=== PATIENT | female | born 1945 | race Caucasian/White ===

== ENCOUNTER → 2017-09-23 | Outpatient (CLI) | payer OTHER ==
[~2017-09-23] MED LIST: ASPI81TA28 PO; ATOR10TA82 PO; CTP2 PO; DYZ PO; GLCSR5 PO; IRBE1TAB46 PO; LYR50 PO; METFTAB2 PO; METO25TA3 PO; NXM/40 PO
--- NOTE | 2017-09-24 05:25 | PAP/PSG TECHNICIAN REPORT ---
[facility] Balloon Dipper Polysomnogram Report Study name: None Report date: 09/24/2017 Study date: 09/23/2017 Referring Physician: Dr. Pinky Akers M.D. Name: JULI ANAND Interpreting Physician: Anthony Ferguson M.D. Date of : 1945 Balloon Dipper: Kirti Olivo [facility]. Sex: Female Age: 71 StudyType: PSG PAP Weight: 212 lbs Height: 71 years, Height 5' 3" BMI: 37.55 Medications: Aspirin 81 mg, Atorvastatin 40 mg, Zyrtec 10 mg, Cholecaloiferol 1000 units, Aricept 10 mg, Esomeprazole Magnesium 40 mg, Glipizide 10 mg, Ibesrtan 150 mg, Metformin ER 750 mg, Metoprolol Succinate 25 mg, pregabalin 50 mg. Ranitidine 150 mg, Triamterene-hctz 75-50 mg Patient History 71 yr. old female here for a new titration sleep study in room 4. Patient had a HST. ESS 05/10. Parameters Monitored NPSG: E1-M2, E2-M1, Fp1-M2, Fp2-M1, F3-M2, F4-M2, F4-M1, C3-M2, C4-M2, C4-M1, O1-M2, O2-M2, O2-M1, T3-M2, T4-M1, P3-M2, P4-M1, CHIN1, CHIN2, HR, EKG, Legs, PFLOW, SNOR, FLOW, CFLOW, Tidal Volume, THOR, ABDO, SpO2, PLTH, CPRESS, ETCO2 Wave, ETCO2, pH Sleep Architecture Sleep Stages Time at Lights Off 9:39:34 PM STAGES Time (min.) TST (%) Time at Lights On 5:05:04 AM Wake 40.0 -- Total Recording Time (TRT) 445.50 min. N1 16.5 4 Total Sleep Period (TSP) 411.0 min. N2 257.5 64 Total Sleep Time (TST) 405.5min. N3 48.0 12 Awake Time 40.0 min. REM 83.5 21 Wake after Sleep Onset 21.5 min. Sleep Efficiency (SE) 91 % Sleep Onset Latency (RASHID) 18.5 min. Number of Stage 1 Shifts None Awakenings 7 Stage Changes 46 Number of REM periods 7 REM 83.5 21 REM Latency 103.0 min. NREM 322.0 79 Body Position Analysis Supine Right Left Side Prone Vertical Total Sleep Time (min.) 445.5 0.0 0.0 0.00 0.0 0.0 Total Sleep Time (%) 100% 0% 0% 0 0% N/A% Total Sleep Time REM (min.) 83.5 0.0 0.0 None 0.0 0.0 Total Sleep Time NREM (min.) 322.0 0.0 0.0 None 0.0 0.0 Intermittent Wake (min.) 40.0 0.0 0.0 None 0.0 0.0 Total Sleep Period (%) 100% None None None None None Arousals Myoclonus (PLM) * Events Count Index Events Count Index Spontaneous 2 0 Events Awake (PLMW) 13 19.5 Respiratory 4 0.6 Events Asleep w/ Arousal (PLMA) 10 1.5 PLM 10 1 Events Asleep w/o Arousal (PLMS) 294 43.5 Snoring 2 0 Total Asleep 304 45.0 Total 18 3 Total 317 43 Respiratory Analysis * CA OA MA CH H RERA Total Count 0 3 1 0 42 1 46 Index 0.0 0.4 0.1 0 6.2 0 7.0 Mean Duration 0.0 18.3 28.6 0.00 31.7 21.8 30.5 Longest Duration 0.0 26.4 28.6 0.00 28.6 21.8 63.6 Respiratory Event Summary Total Supine ~Supine Right Left Prone REM NREM Apneas Count 4 4 N/A N/A N/A N/A 0 4 Index 0.6 1 N/A N/A N/A N/A 0 1 Hypopneas (4% Desat) Count 42 42 N/A N/A N/A N/A 17 25 Index 6.2 6.2 N/A N/A N/A N/A 12.2 4.7 Apneas & All Hypopneas Count 46 46 N/A N/A N/A N/A 17 29 Index 6.8 7 N/A N/A N/A N/A 12.2 5.4 Respiratory Events (Video News Editor+All Hyp+RERA) Count 46 47 N/A N/A N/A N/A 17 29 Index 7.0 7 N/A N/A N/A N/A 12.9 5.4 Respiratory Related Arousal Count 4 47 N/A N/A N/A N/A 2 2 Index 0.6 1 N/A N/A N/A N/A 1 0 Snoring Analysis Supine Right Left Prone REM NREM Total Snore duration 6.1 min Snores count 322 N/A N/A N/A 77 245 322 Snore mean duration 1.1 Sec Snores index 48 N/A N/A N/A 55.3 45.7 47.6 TST with snoring (%) 1.5% Desaturation Event Summary: Minimum %SpO2 Event Count Mean/Min/Max Duration(sec.) Desaturation Index % Time In Bed > 90 45 33.2 / 11.3 / 60.0 6.8 88.9 86 - 90 7 28.2 / 14.5 / 52.5 9.1 10.3 81 - 85 1 22.8 / 22.8 / 22.8 17.6 0.8 76 - 80 0 N/A 0.0 0.0 71 - 75 0 N/A 0.0 0.0 66 - 70 0 N/A 0.0 0.0 61 - 65 0 N/A 0.0 0.0 56 - 60 0 N/A 0.0 0.0 51 - 55 0 N/A 0.0 0.0 < 50 0 N/A 0.0 0.0 Total REM NREM Awake <50% 0.0 min. 0.0 min. 0.0 min. 0.0 min. 51 - 60% 0.0 min. 0.0 min. 0.0 min. 0.0 min. 61 - 70% 0.0 min. 0.0 min. 0.0 min. 0.0 min. 71 - 80% 0.0 min. 0.0 min. 0.0 min. 0.0 min. 81 - 90% 49.4 min. 12.3 min. 35.9 min. 1.2 min. 91 - 100% 394.9 min. 71.2 min. 286.1 min. 37.5 min. Average 93 93 93 95 Minimum SpO2 82 82 83 82 Desaturation Event Index 6.5 10.1 5.4 7.5 # Desat. Events below 89% 19 5 12 2 Time(%) with Saturation below 89% 2.8 1.4 1.2 0.1 Time(min.) with Saturation below 89% 12.4 6.2 5.5 0.7 Time (mins) REM (mins) NREM (mins) % of TST SpO2 Below 90% 27 8 N19 6.2 SpO2 Below 88% 8 0 0 2 Heart Rate Analysis Min (bpm) Max (bpm) Average (bpm) Awake 36 225 75 NREM 60 88 69 REM 61 84 70 Overall 60 88 69 Supplemental O2 Values Minimum O2 level: None Value Start Time End Time Balloon Dipper Comments Mrs. Anand slept in the supine position. No cardiac arrhythmia. PLMs noted. No bruxism noted. CPAP was initiated at +4 CMH2O room air and up-titrated to a level of + 13 CMH2O no Cflex, which nearly eliminated all respiratory events and snoring. A small [employer] Simplus , was used during titration. Mrs. Anand did not wake to use the restroom during the night. Mrs. Anand stated, "I didn't move all night". The final report will be interpreted and signed by a sleep physician. The completed physician report will then be placed in the patient medical record. Therapy Event: Therapy (cm H20) 4 6 7 8 9 10 11 12 13 Total Time at Pressure (min.) 27.9 30.4 89.5 61.4 18.8 56.6 96.6 37.0 27.3 TST at Pressure (min.) 9.4 29.9 86.5 60.9 18.8 56.1 95.6 37.0 11.3 # Periods 1 1 1 1 1 1 1 1 1 Sleep Onset (min.) 18.5 0.0 0.0 0.0 0.0 0.0 0.0 0.0 0.0 REM Onset (min.) N/A N/A 63.2 58.6 0.0 0.0 56.3 N/A 8.3 Sleep Efficiency % 33 98 96 99 100 99 99 100 41 Wakefulness (%) 66.3 1.6 3.4 0.8 0.0 0.9 1.0 0.0 58.7 Wakefulness (min.) 18.5 0.5 3.0 0.5 0.0 0.5 1.0 0.0 16.0 NREM 1 (%) 9.0 14.8 1.7 0.0 5.3 6.2 3.1 1.4 0.0 NREM 1 (min.) 2.5 4.5 1.5 0.0 1.0 3.5 3.0 0.5 0.0 NREM 2 (%) 24.8 65.5 62.0 53.2 0.0 41.0 77.2 98.6 30.3 NREM 2 (min.) 6.9 19.9 55.5 32.6 0.0 23.2 74.6 36.5 8.3 NREM 3 (%) 0.0 18.1 19.0 41.6 0.0 0.0 0.0 0.0 0.0 NREM 3 (min.) 0.0 5.5 17.0 25.5 0.0 0.0 0.0 0.0 0.0 REM (%) 0.0 0.0 14.0 4.5 94.7 52.0 18.6 0.0 11.0 REM (min.) 0.0 0.0 12.5 2.7 17.8 29.4 18.0 0.0 3.0 # Arousals 0 1 1 1 2 4 5 3 1 Arousal Index 0.0 2.0 0.7 1.0 6.4 4.3 3.1 4.9 5.3 # Snore 14 9 11 99 29 38 76 19 27 Snore Index 89.3 18.0 7.6 97.6 92.4 40.6 47.7 30.8 143.9 AHI 63.8 8.0 2.8 3.9 12.7 6.4 5.7 6.5 5.3 AHI Supine 63.8 8.0 2.8 3.9 12.7 6.4 5.7 6.5 5.3 AHI Non-Supine N/A N/A N/A N/A N/A N/A N/A N/A N/A NREM AHI 63.8 8.0 0.8 2.1 0.0 2.2 5.4 6.5 0.0 REM AHI N/A N/A 14.4 43.7 13.5 10.2 6.7 N/A 20.0 RDI 63.8 8.0 2.8 3.9 12.7 6.4 6.3 6.5 5.3 # Obstructive 0 0 0 2 0 0 0 1 0 # Central Ap 0 0 0 0 0 0 0 0 0 # Mixed 0 0 0 0 0 0 1 0 0 # Hypopneas 10 4 4 2 4 6 8 3 1 RERAS 0 0 0 0 0 0 1 0 0 Total Respiratory Events 10 4 4 4 4 6 10 4 1 Time Below SpO2 89.00% (min.) 1.4 3.7 3.1 2.3 1.2 0.0 0.1 0.0 0.0 Mean NREM SpO2 (%) 90 90 92 92 95 95 94 93 95 Mean REM SpO2 (%) N/A N/A 90 87 94 95 93 N/A 94 Mean Sleep SpO2 (%) 90 90 92 92 94 95 94 93 94 Min NREM SpO2 (%) 85 85 89 83 94 91 88 90 93 Min REM SpO2 (%) N/A N/A 82 84 82 89 90 N/A 93 Position Supine (min.) 9.4 29.9 86.5 60.9 18.8 56.1 95.6 37.0 11.3 Position Non-supine (min.) 0.0 0.0 0.0 0.0 0.0 0.0 0.0 0.0 0.0 LM Index Sleep 0.0 8.0 6.2 27.6 19.1 81.2 96.1 40.6 16.0 LM Index NREM 0.0 8.0 0.0 25.8 0.0 141.5 108.3 40.6 7.3 LM Index REM N/A N/A 43.2 65.6 20.2 26.5 43.3 N/A 40.0 Mean Heart Rate (bpm) 72 73 71 67 68 68 68 69 68 Min Heart Rate (bpm) 67 67 65 62 62 60 63 63 65
--- NOTE | 2017-09-25 16:36 | POLYSOMNOGRAPH REPORT ---
CLINICAL DATA: A 71-year-old female with BMI of 37.[address] Akers and Dr. Rosas for CPAP study. She had a home sleep apnea test which showed sleep apnea. SLEEP ARCHITECTURE: Total recording time was 445.5 minutes. Total sleep period was 411 minutes. Total sleep time was 405.5 minutes divided between 322 minutes of non-REM sleep and 83.5 minutes of REM sleep. Sleep latency was 18.5 minutes. REM latency was 103 minutes. Sleep efficiency was 91%. Wake after sleep onset was 21.5 minutes. Sleep consisted of stage N1 4%, stage N2 64%, stage N3 12%, and REM 21%. AROUSAL DATA: Eighteen arousals were recorded for an index of 3 per hour. PLM DATA: Significantly elevated limb movements during sleep were noted. There were 304 limb movements of sleep noted for an index of 45 per hour with arousal index of 1.5 per hour. RESPIRATORY DATA: The AHI was 6.8. The RDI was 7. There were 3 obstructive and 1 mixed apneic episode. The longest duration of apnea was 28.6 seconds. There were 42 hypopneic episodes with the mean duration of 31.7 seconds. There was 1 RERA, 21.8 seconds in duration. OXIMETRY DATA: Transient hypoxemia was seen. Oxygen grace was 82% during REM sleep. Mean saturation was 92%. Time below 88% was 8 minutes. EKG: Heart rates ranged from 60-88 beats per minute. No arrhythmias were noted. EXERCISE PLANNER'S COMMENTS AND TREATMENT SUMMARY: The patient slept supine. She used a small [employer] Simplus mask. She was titrated up to 13 cm of water pressure. At her final pressure setting, she slept for 11 minutes with an AHI of 5. IMPRESSION: Obstructive sleep apnea/hypopnea corrected with CPAP 13 cm water pressure Moses [employer]kel small mask. RECOMMENDATIONS: The patient should be started on the above noted treatment regimen and seen back in followup within 90 days to document efficacy and compliance. DINORAHD
== END | disposition home or self-care (01) ==
LOC: C.NEUR 20:00
PROVIDERS: ATTEND Nurse Practitioner Family
DX: G47.33 Obstructive sleep apnea (adult) (pediatric) (principal)

== ENCOUNTER 2025-06-13 08:30 | Inpatient (IN) ==
--- NOTE | 2025-06-13 08:53 | XRay Report ---
XR chest 1V portable CLINICAL HISTORY: Dyspnea COMPARISON STUDY: 03/30/2024 FINDINGS: Heart size and pulmonary vasculature are normal. No consolidation or pleural effusion. No p neumothorax. IMPRESSION: No acute findings. ACT 112: Negative or not required by law. Electronically signed by: Manjit Delgado M.D. 06/13/2025 8:52 AM
[2025-06-13 09:02] LABS: Hematocrit (blood only) 42.8 % (37.0-47.0); Hemoglobin 14.2 g/dL (12.0-16.0); Immature Granulocytes # (auto) 0.05 K/uL (0.01-0.20); Immature Granulocytes % (auto) 0.5 %; Mean Corpuscular Hemoglobin 28.4 pg (25.0-34.0); Mean Corpuscular Volume 85.6 fL (80.0-100.0); Platelet Count 160 K/uL (130-400); RDW Standard Deviation 46.5 fL (36.4-46.3); Red Blood Count 5.00 M/uL (4.20-5.40); White Blood Count 9.58 K/ul (4.8-10.8)
[2025-06-13 09:21] LABS: Alanine Aminotransferase 15.0 U/L (7-52); Albumin Globulin Ratio 1.3 (0.9-2); Albumin Level 4.0 gm/dl (3.4-5.0); Alkaline Phosphatase 36.0 U/L (34-104); Anion Gap 9.0 (3-11); Bilirubin,Total 0.5 mg/dl (0.2-1.0); Blood Urea Nitrogen 23.0 mg/dl (6-23); Calcium 8.9 mg/dl (8.6-10.3); Carbon Dioxide 27.0 mmol/L (21-32); Chloride 99.0 mmol/L (98-107); Creatinine Clr Calc Pharmacy 39.3 ml/min; Globulin 3.2 gm/dl (2.5-4.0); Glucose 196.0 mg/dl (70-99(Fasting)); Potassium 4.1 mmol/L (3.5-5.1); Sodium 135.0 mmol/L (136-145); Total Protein 7.2 gm/dl (6.0-8.3)
[2025-06-13 10:22] LABS: Chlamydia pneumoniae PCR Not Detected (NotDetected); Coronavirus 229E PCR Not Detected (NotDetected); Coronavirus CoV-2 (COVID19)PCR DETECTED (NotDetected); Coronavirus HKU1 PCR Not Detected (NotDetected); Coronavirus NL63 PCR Not Detected (NotDetected); Coronavirus OC43PCR Not Detected (NotDetected); Human Metapneumovirus PCR Not Detected (NotDetected); Parainfluenza Virus 1 PCR Not Detected (NotDetected); Parainfluenza Virus 2 PCR Not Detected (NotDetected); Parainfluenza Virus 3 PCR Not Detected (NotDetected); Parainfluenza Virus 4 PCR Not Detected (NotDetected); Respiratory Syncytial VirusPCR Not Detected (NotDetected); Rhinovirus/Enterovirus PCR Not Detected (NotDetected)
[2025-06-13 10:25] LABS: Appearance Urine Clear (Clear); Glucose Urine UA Negative (Negative)
--- NOTE | 2025-06-13 10:32 | Emergency Department Note ---
Impression & Plan COVID, Acute hypoxic respiratory failure ED Provider Note NAME: JULI ANAND AGE: 79 SEX: F : 1945 ARRIVES VIA: Ambulance INFORMANT: Patient, ED PROVIDER(S): Chris Pruett MD CHIEF COMPLAINT: Weakness, confusion HPI: This is a 79-year-old female seen for weakness and confusion. Patient notes that she saw unwell for a few days. She is a fairly limited historian. She does fall asleep states she has no current pain. She has feels tired. She does not feel short of breath. She is found to be in 85% on arrival, on room air. No sick contacts. ROS: Unable to obtain PHYSICAL EXAMINATION: General: resting comfortably in no acute distress Head: Normocephalic and atraumatic Eyes: Normal inspection, extraocular muscles intact Ear, nose, throat: Normal external exam Neck: Normal range of motion Respiratory: lungs clear to auscultation bilaterally Cardiovascular: Regular rate/rhythm, no murmur GI: soft, nontender, no guarding or rebound Extremities: nontender, moves all extremities Neuro: The patient awake and alert, appropriately conversive, no focal deficits, symmetric faces Skin: Warm, dry, and intact MEDICAL DECISION MAKING: This is a 79-year-old female presenting for weakness/confusion. Patient is a limited historian but she is currently hypoxic. She has clear lung sounds overall. Consider viral URI. Low concern for PE as she is not tachycardic or having chest pain. W - Chest Xray independently interpreted by me showing no pneumothorax, focal opacity, or pleural effusions. -Bloodwork is reviewed showing no significant leukocytosis, anemia, electrolyte or creatinine abnormality -Patient is currently COVID-19 positive -As the patient currently requires oxygen to maintain saturations above 90%, will admit to the hospital service Differential diagnosis: Pneumonia, URI, PE Independent History obtained from: EMS Diagnostics interpreted by me: ECG: N ECG independently interpreted by me with normal sinus rhythm, rate of 91, first-degree AV block, normal QRS, normal QTc, no ST segment elevations consistent with STEMI criteria Cardiac Monitoring: An order was placed for continuous cardiac monitoring. The monitor shows a rate of 78 with sinus rhythm. Past Med/Surg History Problem List (Updated 06/13/25 @ 13:32 by Crhis Pruett MD) Acute hypoxic respiratory failure (Acute) COVID (Acute) Venous stasis Loss of protective sensation of skin of foot Diabetic peripheral neuropathy associated with type 2 diabetes mellitus (Chronic) Foot deformity (Chronic) Tinea pedis (Chronic) Medical History (Updated 06/13/25 @ 13:32 by Chris Pruett MD) Diabetes mellitus with diabetic polyneuropathy Social History Smoking Status: Never smoker Preferred Language: Occitan Feels Safe at Home: Yes Allergies Allergies Allergy/AdvReac Type Severity Reaction Status Date / Time oxycodone Allergy Unknown CONFUSION Verified 06/06/16 06:25 AND ANXIETY, "JITTERY" Home Meds Home Medications Medication Instructions Recorded Confirmed atorvastatin 40 mg tablet 10 mg PO UD ##0 12/20/06 06/13/25 esomeprazole magnesium 20 mg 20 mg PO UD ##0 12/20/06 06/13/25 capsule,delayed release aspirin 81 mg tablet,delayed 81 mg PO QAM ##0 05/30/16 06/13/25 release allopurinol 100 mg tablet 100 mg PO QAM 03/30/24 06/13/25 (Zyloprim) donepezil 10 mg tablet 10 mg PO DAILY 03/30/24 06/13/25 escitalopram oxalate 5 mg tablet 5 mg PO QAM 03/30/24 06/13/25 glipizide 10 mg tablet 20 mg PO QAM 03/30/24 06/13/25 memantine 5 mg tablet 5 mg PO BID 03/30/24 06/13/25 pregabalin 25 mg capsule 25 mg PO TID 03/30/24 06/13/25 semaglutide 2 mg/dose (8 mg/3 mL) 8 mg subcut WK 06/13/25 06/13/25 subcutaneous pen injector (Ozempic) Results & Data (ED) Vital Signs Vital Signs - 24 hr 06/13/25 08:43 06/13/25 08:49 06/13/25 09:04 Temperature 37.2 C Temperature Source Axillary Pulse Rate 88 92 H Pulse Rate [Left Finger] Respiratory Rate 22 Respiratory Effort / Characteristics Non-Labored Respiratory Depth Normal Respiratory Pattern Regular Blood Pressure 162/90 H Blood Pressure [Right Arm] Blood Pressure Mean 114 Blood Pressure Mean [Right Arm] Pulse Oximetry 85 L Oxygen Delivery Method Nasal Cannula Room Air Oxygen Flow Rate 2 Sepsis Recent Fever Within 48 Hours No Sepsis New/Unexplained Change in Mental Status No Sepsis Action Taken by Nursing No Action Required 06/13/25 09:08 06/13/25 11:00 06/13/25 12:31 Temperature Temperature Source Pulse Rate 95 H 80 Pulse Rate [Left Finger] 81 Respiratory Rate 22 22 Respiratory Effort / Characteristics Non-Labored Respiratory Depth Normal Respiratory Pattern Blood Pressure Blood Pressure [Right Arm] 145/81 H Blood Pressure Mean Blood Pressure Mean [Right Arm] 102 Pulse Oximetry 95 97 Oxygen Delivery Method Nasal Cannula Room Air Oxygen Flow Rate 2 Sepsis Recent Fever Within 48 Hours Sepsis New/Unexplained Change in Mental Status Sepsis Action Taken by Nursing 06/13/25 13:00 Temperature Temperature Source Pulse Rate Pulse Rate [Left Finger] 78 Respiratory Rate 17 Respiratory Effort / Characteristics Non-Labored Respiratory Depth Normal Respiratory Pattern Blood Pressure Blood Pressure [Right Arm] 137/88 Blood Pressure Mean Blood Pressure Mean [Right Arm] 104 Pulse Oximetry 98 Oxygen Delivery Method Nasal Cannula Oxygen Flow Rate 2 Sepsis Recent Fever Within 48 Hours Sepsis New/Unexplained Change in Mental Status Sepsis Action Taken by Nursing Laboratory Data 06/13/25 08:45 06/13/25 08:45 Lab Results 06/13/25 06/13/25 06/13/25 Range/Units 08:45 09:07 10:15 WBC 9.58 (4.8-10.8) K/ul RBC 5.00 (4.20-5.40) M/uL Hgb 14.2 (12.0-16.0) g/dL Hct 42.8 (37.0-47.0) % MCV 85.6 (80.0-100.0) fL MCH 28.4 (25.0-34.0) pg MCHC 33.2 (32.0-36.0) g/dL RDW Std Deviation 46.5 H (36.4-46.3) fL RDW Coeff of Angelica 14.9 H (11.5-14.5) % Plt Count 160 (130-400) K/uL MPV 12.6 H (9.4-12.4) fL Immature Gran % (Auto) 0.5 % Neut % (Auto) 83.9 % Lymph % (Auto) 7.2 % [place] % (Auto) 7.8 % Eos % (Auto) 0.2 % Baso % (Auto) 0.4 % Neut # (Auto) 8.03 H (1.40-6.50) K/uL Lymph # (Auto) 0.69 L (1.20-3.40) K/uL [place] # (Auto) 0.75 H (0.11-0.59) K/uL Eos # (Auto) 0.02 (0.00-0.50) K/uL Baso # (Auto) 0.04 (0.00-0.20) K/uL Immature Gran # (Auto) 0.05 (0.01-0.20) K/uL Sodium 135 L (136-145) mmol/L Potassium 4.1 (3.5-5.1) mmol/L Chloride 99 (98-107) mmol/L Carbon Dioxide 27 (21-32) mmol/L Anion Gap 9 (3-11) BUN 23 (6-23) mg/dl Creatinine 1.37 H (0.6-1.2) mg/dl Est Cr Clr Drug Dosing 39.3 ml/min eGFR 39.28 BUN/Creatinine Ratio 16.8 (10-20) Glucose 196 H (70-99(Fasting)) mg/dl Lactate 1.8 (0.4-2.0) mmol/L Calcium 8.9 (8.6-10.3) mg/dl Total Bilirubin 0.5 (0.2-1.0) mg/dl AST 20 (13-39) U/L ALT 15 (7-52) U/L Alkaline Phosphatase 36 (34-104) U/L Troponin I High Sens 4.1 (0-14) pg/ml Total Protein 7.2 (6.0-8.3) gm/dl Albumin 4.0 (3.4-5.0) gm/dl Globulin 3.2 (2.5-4.0) gm/dl Albumin/Globulin Ratio 1.3 (0.9-2) Procalcitonin 0.07 (0-0.5) ng/ml Urine Color Yellow Urine Appearance Clear (Clear) Urine pH 7.0 (4.5-7.5) Ur Specific [place] 1.016 (1.000-1.030) Urine Protein Negative (Negative) Urine Glucose (UA) Negative (Negative) Urine Ketones Trace H (Negative) Urine Blood Negative (Negative) Urine Nitrite Negative (Negative) Urine Bilirubin Negative (Negative) Urine Urobilinogen Negative (Negative) Ur Leukocyte Esterase Negative (Negative) Urine Comment Adenovirus (PCR) Not Detected (NotDetected) B. pertussis DNA (PCR) Not Detected (NotDetected) B.parapertussis DNA PCR Not Detected (NotDetected) C. pneumoniae DNA (PCR) Not Detected (NotDetected) Coronavirus OC43 (PCR) Not Detected (NotDetected) Coronavirus HKU1 (PCR) Not Detected (NotDetected) Coronavirus 229E (PCR) Not Detected (NotDetected) SARS-CoV-2 (PCR) DETECTED A (NotDetected) Coronavirus NL63 (PCR) Not Detected (NotDetected) Human Metapneumovir PCR Not Detected (NotDetected) Influenza Type A (PCR) Not Detected (NotDetected) Influenza Type B (PCR) Not Detected (NotDetected) M. pneumoniae (PCR) Not Detected (NotDetected) Parainfluenza 1 (PCR) Not Detected (NotDetected) Parainfluenza 2 (PCR) Not Detected (NotDetected) Parainfluenza 3 (PCR) Not Detected (NotDetected) Parainfluenza 4 (PCR) Not Detected (NotDetected) RSV (PCR) Not Detected (NotDetected) Entero/Rhino (PCR) Not Detected (NotDetected) Administered Medications Dexamethasone (Dexamethasone 1 Mg Tab) 6 mg PO DAILY [facility] Stop: 06/20/25 12:14 Last Admin: 06/13/25 12:44 Dose: 6 mg Documented By: nery Remdesivir 200 mg/ Sodium (Chloride) 250 mls @ 125 mls/hr IV 1200 ONE Stop: 06/13/25 13:59 Last Admin: 06/13/25 12:45 Dose: 125 mls/hr Documented By: nery Lactated Ringer's (Lr) 1,000 mls @ 80 mls/hr IV .[id number] [facility] Stop: 06/14/25 12:44 Last Infusion: 06/13/25 13:11 Dose: 0 mls/hr Documented By: nery Admin: 06/13/25 12:24 Dose: 80 mls/hr Documented By: nery Imaging Data Radiologist's Impression: Chest X-Ray 06/13/25 08:41 XR chest 1V portable CLINICAL HISTORY: Dyspnea COMPARISON STUDY: 03/30/2024 FINDINGS: Heart size and pulmonary vasculature are normal. No consolidation or pleural effusion. No pneumothorax. IMPRESSION: No acute findings. ACT 112: Negative or not required by law. Electronically signed by: Manjit Delgado M.D. 06/13/2025 8:52 AM Discharge Plan Visit Data Chief Complaint: Weakness Stated Complaint: WEAKNESS ED Provider: Chris Pruett Discharge Problem: COVID, Acute hypoxic respiratory failure Patient Disposition: Admitted As Inpatient Condition: Fair Forms Stand Alone Forms: My [facility] Prescriptions Prescriptions: No Action atorvastatin 40 mg Tablet 10 mg PO UD Qty: 0 Rx Instructions: 40 mg po qam on hold with pharmacy esomeprazole magnesium 20 mg Capsule,Delayed Release(Dr/Ec) 20 mg PO UD Qty: 0 Rx Instructions: 20 mg po qam on hold with pharmacy aspirin [Aspir-81] 81 mg Tablet,Delayed Release (Dr/Ec) 81 mg PO QAM Qty: 0 Rx Instructions: otc unable to verify donepezil 10 mg tablet 10 mg PO DAILY glipizide 10 mg tablet 20 mg PO QAM allopurinol [Zyloprim] 100 mg tablet 100 mg PO QAM memantine 5 mg tablet 5 mg PO BID escitalopram oxalate 5 mg tablet 5 mg PO QAM pregabalin 25 mg capsule 25 mg PO TID Ozempic 2 mg/dose (8 mg/3 mL) pen injector 8 mg SUBCUT WK Referrals Referrals: Cosme Rosas MD [Primary Care Provider] -
[2025-06-13] MEDS ORDERED: ONDANSETRON INJ 2 MG/ML 2 ML VIAL IV PRN (11:41)
[2025-06-13] MEDS ORDERED: POLYETHYLENE (MIRALAX) 17 GM PACK PO PRN (11:41)
--- NOTE | 2025-06-13 11:46 | History & Physical Report ---
Date of Service June 13, 2025 Assessment & Plan (1) COVID: (2) Acute hypoxic respiratory failure: (3) Diabetes mellitus with diabetic polyneuropathy: Plan This is a 79 year old female with past medical history of T2 DM who presented to the ED on 06/13/2025 secondary to weakness. While in the ED, she was found to be + for COVID. She was hypoxic and placed on 2L of oxygen. Her CBC is without leukocytosis. BMP w/ elevated creatinine of 1.37, previously checked was normal in 2023. Na mildly low at 135. LFTs WNL, Procal WNL. UA negative. CXR negative. #COVID-19 | Acute hypoxic respiratory failure. 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 Biofire + for COVID CBC w/o leukocytosis. Procal neg CXR negative. Start Remdesivir & Dexamethasone. COVID-19 precautions PT/OT consulted, appreciate recommendations. Wean O2 when able. Goal >90%, currently on 2L #CKD ? Unsure of patients baseline but previous reported creatinines include 1.2 & 1.40 in our system. suspect CKD component. Creatine 1.37 on admission. s/p 2L of IVF Recheck in AM #Type 2 DM No A1c in our system, check in AM On Glipizide & Ozempic outpatient - hold Cover w/ SSI for now, adjust as necessary #Cognitive impairment - Donepezil & Memantine #Neuropathic related pain - Pregablin #HLD - Statin #Gout - Allopurinol DVT prophylaxis: Heparin Code: Full Case was discussed w/ Dr. Archuleta & updated at time of admission. History of Present Illness Primary Care Provider: Cosme Rosas MD This is a 79 year old female with past medical history of T2 DM who presented to the ED on 06/13/2025 secondary to weakness. Barbara was seen & examined this morning with her at bedside. reports that for the last 2 days she has developed worsening weakness. reports no falls. She does report SOB but denies CP, N/V, abd pain, changes in bowels/bladders. She reports mild LE edema at baseline. States she was to see her PCP last week & had a good report. Reports she does not leave the house much but did have company over for [place]. While in the ED, she was found to be + for COVID. She was hypoxic and placed on 2L of oxygen. Her CBC is without leukocytosis. BMP w/ elevated creatinine of 1.37, previously checked was normal in 2023. Na mildly low at 135. LFTs WNL, Procal WNL. UA negative. CXR negative. Code discussion did take place & her/ do confirm she is a full code. Allergies Allergy/AdvReac Type Severity Reaction Status Date / Time oxycodone Allergy Unknown CONFUSION Verified 06/06/16 06:25 AND ANXIETY, "JITTERY" Home Medications Medication Instructions Recorded Confirmed Type atorvastatin 40 mg tablet 10 mg PO UD ##0 12/20/06 06/13/25 History esomeprazole magnesium 20 mg 20 mg PO UD ##0 12/20/06 06/13/25 History capsule,delayed release aspirin 81 mg tablet,delayed 81 mg PO QAM ##0 05/30/16 06/13/25 History release allopurinol 100 mg tablet 100 mg PO QAM 03/30/24 06/13/25 History (Zyloprim) donepezil 10 mg tablet 10 mg PO DAILY 03/30/24 06/13/25 History escitalopram oxalate 5 mg tablet 5 mg PO QAM 03/30/24 06/13/25 History glipizide 10 mg tablet 20 mg PO QAM 03/30/24 06/13/25 History memantine 5 mg tablet 5 mg PO BID 03/30/24 06/13/25 History pregabalin 25 mg capsule 25 mg PO TID 03/30/24 06/13/25 History semaglutide 2 mg/dose (8 mg/3 mL) 8 mg subcut WK 06/13/25 06/13/25 History subcutaneous pen injector (Ozempic) Past Med/Surg History Problem List (Updated 06/13/25 @ 13:32 by Chris Pruett MD) Acute hypoxic respiratory failure (Acute) COVID (Acute) Venous stasis Loss of protective sensation of skin of foot Diabetic peripheral neuropathy associated with type 2 diabetes mellitus (Chronic) Foot deformity (Chronic) Tinea pedis (Chronic) Medical History (Updated 06/13/25 @ 13:32 by Chris Pruett MD) Diabetes mellitus with diabetic polyneuropathy Social History Smoking Status: Never smoker Second Hand Exposure: No; Do You Dip or Chew Tobacco: No; Tobacco Cessation Education Requested by Patient: No Hx Alcohol Use: No Hx Substance Use: No Preferred Language: Yakut Communication Ability: Effective Chief Technician Required: No Beliefs That Will Affect Care: None Current Living Situation: Spouse Other Information That Helps Us Care for You: No Feels Safe at Home: Yes Safety Concerns: Feels Safe At This Time Assistive Devices: Denture - Upper and Denture - Lower Physical Exam Physical Exam: .General: NAD, VS: BP 135/79; P78; R17; T36.5C Resp: normal respiratory effort, lungs clear to auscultation CV: RRR, no murmur Abd: normal bowel sounds, non tender, soft Extremities: Moves all extremities, no edema Neuro: A&O x3 Skin: intact, no lesions noted Results & Data Results & Data Vital Signs (Past 12 Hours) Vital Signs Temp Pulse Resp BP Pulse Ox O2 Del Method O2 Flow Rate 06/13/25 09:08 95 H 22 95 Nasal Cannula 2 06/13/25 09:04 92 H 06/13/25 08:49 37.2 C 88 22 162/90 H 85 L Room Air 06/13/25 08:43 Nasal Cannula 2 Code Status & VTE Plan VTE Prophylaxis Plan VTE Prophylaxis will be ordered: Yes PG Care Time/CCT Total # of Minutes Spent Total Time Spent with Patient: Total time spent is greater than 50% in coordination of care (as documented) at patient's floor/unit and/or counseling patient: Coding Level of Care Code 86049 INT INP/OBS CARE 3/75MIN Diagnoses COVID U07.1 Acute hypoxic respiratory failure J96.01 Diabetes mellitus with diabetic polyneuropathy E11.42
[2025-06-13] MEDS: LACTATED RINGER'S 1,000 ML IV SCH (12:24)
[2025-06-13] MEDS: REMDESIVIR 200 MG in SODIUM CHLORIDE 0.9% 210 ML IV ONE (12:45)
[2025-06-13] MEDS: PREGABALIN 25 MG CAP PO SCH (17:51)
[2025-06-13] MEDS: INSULIN ASPART PER UNIT CHARGE SC SCH (18:24)
[2025-06-13] MEDS: MELATONIN 3 MG TAB PO PRN (21:36)
[2025-06-13] MEDS: HEPARIN SOD 5,000 UNIT/0.5 ML VIAL SQ SCH (21:36)
[2025-06-13] MEDS: ACETAMINOPHEN 325 MG TAB PO PRN (21:37)
[2025-06-13] MEDS: MEMANTINE HCL 5 MG TAB PO SCH (21:38)
[2025-06-14 07:37] LABS: Hematocrit (blood only) 40.0 % (37.0-47.0); Hemoglobin 13.6 g/dL (12.0-16.0); Mean Corpuscular Hemoglobin 28.3 pg (25.0-34.0); Mean Corpuscular Volume 83.3 fL (80.0-100.0); Platelet Count 148 K/uL (130-400); RDW Standard Deviation 44.2 fL (36.4-46.3); Red Blood Count 4.80 M/uL (4.20-5.40); White Blood Count 5.63 K/ul (4.8-10.8)
[2025-06-14 07:54] LABS: Anion Gap 7.0 (3-11); Blood Urea Nitrogen 22.0 mg/dl (6-23); Calcium 9.0 mg/dl (8.6-10.3); Carbon Dioxide 25.0 mmol/L (21-32); Chloride 104.0 mmol/L (98-107); Creatinine Clr Calc Pharmacy 56.7 ml/min; Glucose 174.0 mg/dl (70-99(Fasting)); Magnesium 1.7 mg/dl (1.7-2.4); Potassium 3.9 mmol/L (3.5-5.1); Sodium 136.0 mmol/L (136-145)
[2025-06-14 08:04] LABS: Hemoglobin A1C 6.9 % (4.5-5.6)
--- NOTE | 2025-06-14 09:02 | Hospitalist Progress Note ---
"Date of Service June 14, 2025 Assessment & Plan (1) COVID: (2) Acute hypoxic respiratory failure: (3) Diabetes mellitus with diabetic polyneuropathy: Plan This is a 79 year old female presented by ambulance from home with weakenss, found to have Covid and hypoxia, with past medical history of T2 DM who presented to the ED on 06/13/2025 secondary to weakness. #COVID-19 | Acute hypoxic respiratory failure. 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 Biofire + for COVID CBC w/o leukocytosis. Procal neg CXR negative. Start Remdesivir & Dexamethasone. COVID-19 precautions PT/OT consulted, appreciate recommendations. Wean O2 when able. Goal >90%, currently on 2L #CKD 3 Unsure of patients baseline but previous reported creatinines include 1.2 & 1.40 in our system. suspect CKD component. Creatine 1.37 on admission. s/p 2L of IVF Recheck in AM #Type 2 DM a1c 6.9 On Glipizide & Ozempic outpatient - hold Cover w/ SSI for now, adjust as necessary #Cognitive impairment - Donepezil & Memantine #Neuropathic related pain - Pregablin #HLD - Statin #Gout - Allopurinol DVT prophylaxis: Heparin Code: Full Admission and Anticipated Discharge Date Admission Date: June 13, 2025 Subjective pt is pleasantly confused, says she lives with jane, but he is not listed as a contact left message for DIL covid is improved and will need to coordinate for return to home Physical Exam Physical Exam: lungs are clear cardiac is regular abdomen is soft and non tender Results & Data Results & Data Vital Signs (Past 12 Hours) Vital Signs Temp Pulse Resp BP Pulse Ox O2 Del Method 06/14/25 07:01 97.3 F L 58 L 18 150/79 H 96 Room Air 06/13/25 23:31 98.1 F 67 18 151/71 H 94 Room Air Laboratory Results review cbc review chemistry PG Care Time/CCT Total # of Minutes Spent Total Time Spent with Patient: Total time spent is greater than 50% in coordination of care (as documented) at patient's floor/unit and/or counseling patient: Coding Level of Care Code 96012 SUB INP/OBS CARE 3/50MIN Diagnoses COVID U07.1 Acute hypoxic respiratory failure J96.01 Diabetes mellitus with diabetic polyneuropathy E11.42"
[2025-06-14] MEDS: ESCITALOPRAM OXALATE 10 MG TAB PO SCH (09:27)
[2025-06-14] MEDS: ASPIRIN 81 MG ECTAB PO SCH (09:27)
[2025-06-14] MEDS: DONEPEZIL HCL 10 MG TAB PO SCH (09:28)
--- NOTE | 2025-06-14 11:20 | Electrocardiogram Report ---
Test Reason : Blood Pressure : */* mmHG Vent. Rate : 91 BPM Atrial Rate : 91 BPM P-R Int : 216 ms QRS Dur : 102 ms QT Int : 374 ms P-R-T Axes : 24 10 64 degrees QTcB Int : 460 ms Sinus rhythm with 1st degree A-V block Cannot rule out Anterior infarct , age undetermined Abnormal ECG When compared with ECG of 30-Mar-2024 11:10, T wave inversion now evident in Lateral leads Confirmed by Vanna Meyer (Eun) on 06/14/2025 11:20:35 AM Referred By: REFERRED SELF Confirmed By: Vanna Meyer
[2025-06-14] MEDS: REMDESIVIR 100 MG in SODIUM CHLORIDE 0.9% 230 ML IV SCH (13:10)
[2025-06-15] MEDS ORDERED: COUGH DROP (SUGAR FREE) LOZ 24 LOZ/1 BOX BUCCAL PRN (05:58)
[2025-06-15 11:20] VITALS: RESP 20; TEMP 97.5; O2SAT 96
[2025-06-15 12:36] VITALS: BP 135/79; PULSE 66
--- NOTE | 2025-06-15 15:22 | Discharge Summary ---
"Discharge Summary Date of Service June 15, 2025 Principal Dx & Hospital Course #1 = Principal Diagnosis (1) COVID: (2) Acute hypoxic respiratory failure: (3) Diabetes mellitus with diabetic polyneuropathy: Plan This is a 79 year old female presented by ambulance from home with weakenss, found to have Covid and hypoxia, with past medical history of T2 DM who presented to the ED on 06/13/2025 secondary to weakness. she has done well, hypoxia resolved, pneumonia not identified and family agrees to return home to supportive environment #COVID-19 | Acute hypoxic respiratory failure. 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 Biofire + for COVID. Procal neg CXR negative for pneumonia. Start Remdesivir & Dexamethasone-> discharge on dexamethasone 6 mg 5 additional days COVID-19 precautions give at dc now on room air for 24 hours #CKD 3 Unsure of patients baseline but previous reported creatinines include 1.2 & 1.40 in our system. suspect CKD component. Creatine 1.37 on admission. s/p 2L of IVF #Type 2 DM a1c 6.9 On Glipizide & Ozempic outpatient #Cognitive impairment - Donepezil & Memantine #Neuropathic related pain - Pregablin #HLD - Statin #Gout - Allopurinol Son at bedside at time of discharge all ? answered Code: Full Admission HPI Per Admitting Provider This is a 79 year old female with past medical history of T2 DM who presented to the ED on 06/13/2025 secondary to weakness. Barbara was seen & examined this morning with her at bedside. reports that for the last 2 days she has developed worsening weakness. reports no falls. She does report SOB but denies CP, N/V, abd pain, changes in bowels/bladders. She reports mild LE edema at baseline. States she was to see her PCP last week & had a good report. Reports she does not leave the house much but did have company over for [place]. While in the ED, she was found to be + for COVID. She was hypoxic and placed on 2L of oxygen. Her CBC is without leukocytosis. BMP w/ elevated creatinine of 1.37, previously checked was normal in 2023. Na mildly low at 135. LFTs WNL, Procal WNL. UA negative. CXR negative. Code discussion did take place & her/ do confirm she is a full code. Discharge Exam awake and alert, mild cognitive impairment, lungs clear Discharge Plan Discharge Items Patient Disposition: Home - Home Health Services Reason For Visit: WEAKNESS Discharge Diagnosis: acute low oxygen level from covid infection = resolved Condition on Discharge: Fair Activity: Resume your previous activity Non-emergency contact: Primary Care Provider Call non-emergency contact if: your symptoms worsen Follow-up/Referrals: Cosme Rosas MD [Primary Care Provider] - Diet: Regular Addtl Attending Provider Instructions: You have been diagnosed with covid infection, it would be recommended that you q uarantine yourself for 5 days from your first test or first symptoms, and if at the 5th day you have no symptoms the you can come off quarantine but use common sense precautions. Quarantine means attempting to stay away from people who have not had an active covid infection in the past, and if you have to be around others to wear a mask even if you are indoors, do not share a room to sleep in with others until you are out of quarantine. Try to not be around people with serious health issues or those who are receiving active cancer treatment Pending Studies at Discharge: No Stand-Alone Forms: [employer], Smoking Cessation Medications and DC Order Prescriptions: New dexamethasone 6 mg tablet 6 mg PO DAILY Qty: 5 0RF Continued atorvastatin 40 mg Tablet 10 mg PO UD Qty: 0 Rx Instructions: 40 mg po qam on hold with pharmacy esomeprazole magnesium 20 mg Capsule,Delayed Release(Dr/Ec) 20 mg PO UD Qty: 0 Rx Instructions: 20 mg po qam on hold with pharmacy aspirin 81 mg Tablet,Delayed Release (Dr/Ec) 81 mg PO QAM Qty: 0 Rx Instructions: otc unable to verify donepezil 10 mg tablet 10 mg PO DAILY glipizide 10 mg tablet 20 mg PO QAM allopurinol [Zyloprim] 100 mg tablet 100 mg PO QAM memantine 5 mg tablet 5 mg PO BID escitalopram oxalate 5 mg tablet 5 mg PO QAM pregabalin 25 mg capsule 25 mg PO TID Ozempic 2 mg/dose (8 mg/3 mL) pen injector 8 mg SUBCUT WK Discharge Orders: Discharge Order (Routine); Ordered 06/15/25 Ordered By: Cristhian Castellanos Admission Data Admit Date/Time: 06/13/25 11:41 Attending Provider: Cristhian Castellanos Admit Provider: Marlyn Archuleta Primary Care Provider: Cosme Rosas Other Providers: Marlyn Archuleta; [facility] Other Interventions: Discharge Summary Assessment (RN) Last Done: 06/15/25 12:34 Hospital Stay Data Consultations 06/13/25 11:59 ED Decision to Admit Stat Pending Results Patient Have Any Pending Studies at Discharge: No Discharge Instructions Given to Patient (Per Discharging Provider) You have been diagnosed with covid infection, it would be recommended that you quarantine yourself for 5 days from your first test or first symptoms, and if at the 5th day you have no symptoms the you can come off quarantine but use common sense precautions. Quarantine means attempting to stay away from people who have not had an active covid infection in the past, and if you have to be around others to wear a mask even if you are indoors, do not share a room to sleep in with others until you are out of quarantine. Try to not be around people with serious health issues or those who are receiving active cancer treatment Total Time Total Time Spent Total Time Spent (In Minutes): I personally have spent greater than 30 minutes of time on the patient discharge today including review of tests, documentation, exam, and discussing treatment plan moving forward with the patient. Including discussion with community case manager and family Coding Level of Care Code 59427 INP/OBS DISCH >30 MIN Diagnoses COVID U07.1 Acute hypoxic respiratory failure J96.01 Diabetes mellitus with diabetic polyneuropathy E11.42"
== END 2025-06-15 13:26 | disposition home health service (06) | DRG 177 ==
LOC: SUATTDRO → ED 08:30 → 4W 11:41 → SUATTDRO 11:41 → 4W 15:22